=== PATIENT | male | born 1985 | race Caucasian/White ===

== ENCOUNTER 2020-01-21 04:00 | Emergency (ER) | payer OTHER, SELFPAY ==
[~2020-01-21] VITALS: Ht 180.3 cm; Wt 80.0 kg
[2020-01-21 04:03] VITALS: BP 128/61
[2020-01-21] MEDS ORDERED: ACYC-57 PO (04:22)
--- NOTE | 2020-01-21 04:22 | NUR ---
PT RESTING ON GURNEY, MONITORS APPLIED, SIERAILS UP X2, CALL LIGHT WITHIN REACH. AWAITING ERP FOR EVAL AND ORDERS
[2020-01-21] MEDS ORDERED: LIDOCAINE-MPF 1%, 5ML INFIL ONE (05:00)
--- NOTE | 2020-01-21 05:00 | NUR ---
PRODUCTION TEAM LEADER AT PT'S BEDSIDE FOR WOUND IRRIGATION TO RIGHT LOWER EXT
--- NOTE | 2020-01-21 05:15 | NUR ---
PA AT PT'S BEDSIDE FOR SUTURES
[2020-01-21] MEDS ORDERED: NEOSPORIN OINT. PKT 1 PACKET ONE (05:22)
== END 2020-01-21 05:36 | disposition home or self-care (01) ==
LOC: ED 05:07
DX: S81.812A Laceration without foreign body, left lower leg, initial encounter (principal); X58.XXXA Exposure to other specified factors, initial encounter; Y93.89 Activity, other specified; Y92.69 Other specified industrial and construction area as the place of occurrence of the external cause; Y99.8 Other external cause status
CPT/HCPCS: 12001; 99283

== ENCOUNTER 2020-03-23 13:08 | Emergency (ER) | payer OTHER ==
[~2020-03-23] VITALS: Ht 172.7 cm; Wt 78.0 kg
[~2020-03-23 13:08] MED LIST: ACYC-57 PO
[2020-03-23 13:30] VITALS: BP 109/72
[2020-03-23] MEDS ORDERED: NEOSPORIN OINT. PKT 1 PACKET ONE (14:11)
--- NOTE | 2020-03-23 14:25 | NUR ---
WOUNDS DRESSED BEFOR DC
== END 2020-03-23 14:27 | disposition home or self-care (01) ==
LOC: ED 13:48
DX: S00.83XA Contusion of other part of head, initial encounter (principal); S60.512A Abrasion of left hand, initial encounter; W19.XXXA Unspecified fall, initial encounter; Y93.89 Activity, other specified; Y92.488 Other paved roadways as the place of occurrence of the external cause; Y99.8 Other external cause status
CPT/HCPCS: 99283

== ENCOUNTER 2020-11-29 22:06 | Emergency (ER) | payer OTHER ==
[~2020-11-29] VITALS: Ht 180.3 cm; Wt 80.0 kg
[2020-11-29 22:10] VITALS: BP 137/68
--- NOTE | 2020-11-29 22:53 | NUR ---
PT AMBULATED TO ROOM, NO ACUTE DISTRESS. PT WAITING ON ADMINISTRATIVE PERSONAL ASSISTANT. LAB DRAWN, AND SENT DOWN.
== END 2020-11-29 23:54 | disposition home or self-care (01) ==
LOC: ED 22:36
DX: T75.89XA Other specified effects of external causes, initial encounter (principal); X58.XXXA Exposure to other specified factors, initial encounter; Y93.89 Activity, other specified; Y92.89 Other specified places as the place of occurrence of the external cause; Y99.8 Other external cause status
CPT/HCPCS: 36415; 86705; 86706; 86803; 87340; 87806; 99283; G0475